=== PATIENT | female | born 1980 | race African-American/Black ===

== ENCOUNTER 2024-11-17 16:09 | Emergency (ER) | payer OTHER ==
[~2024-11-17] VITALS: Ht 152.4 cm; Wt 68.0 kg
[2024-11-17 17:00] VITALS: O2SAT 98
[2024-11-17 17:47] LABS: *BILIRUBIN,URIN NEGATIVE (NEGATIVE); *BLOOD, URINE 1+ (NEGATIVE); *CLARITY,URINE CLEAR (CLEAR); *COLOR,URINE YELLOW (YELLOW); *KETONES,URINE NEGATIVE (NEGATIVE); *PROTEIN,URINE NEGATIVE (NEGATIVE); *UROBILINOGEN,URINE 0.2 E.U./dl (NORMAL); LEUKOCYTE ESTERASE ,URINE NEGATIVE (NEGATIVE); NITRITE, URINE NEGATIVE (NEGATIVE); PH,URINE 5.5 (5.0-8.0); UGLUCOSE NEGATIVE (NEGATIVE)
[2024-11-17 17:50] LABS: RBC,URINE 0-3 /HPF (0-3); WBC,URINE 0-3 /HPF (0-3)
[2024-11-17 18:15] LABS: *URINE HCG, QUAL NEGATIVE (NEGATIVE)
[2024-11-17] MEDS ORDERED: CEFI400C PO (21:06)
[2024-11-17] MEDS ORDERED: DOXY100C5 PO (21:06)
== END 2024-11-17 18:17 | disposition left against medical advice (07) ==
LOC: EDBD 16:09 → EDSEX 16:09 → ER 18:14
DX: R10.9 Unspecified abdominal pain (principal); Z53.21 Procedure and treatment not carried out due to patient leaving prior to being seen by health care provider
CPT/HCPCS: 84703; 87086; A4606; A4663

== ENCOUNTER 2024-11-17 18:41 | Emergency (ER) | payer OTHER ==
[~2024-11-17] VITALS: Ht 149.9 cm; Wt 65.3 kg
[2024-11-17 19:12] LABS: BASOPHILS # (AUTO) 0.1 K/UL (0.0-0.2); BASOPHILS % (AUTO) 0.9 % (0.0-2.0); EOSINOPHILS # (AUTO) 0.1 K/uL (0.0-0.7); EOSINOPHILS % (AUTO) 1.7 % (0.0-7.0); HEMATOCRIT 39.5 % (31.2-41.9); HEMOGLOBIN 12.7 g/dL (10.9-14.3); LYMPHOCYTES # (AUTO) 2.1 K/uL (0.8-4.8); LYMPHOCYTES % (AUTO) 34.3 % (20.5-51.5); MEAN CORPUSCULAR HEMOGLOBIN 26.6 uug (24.7-32.8); MEAN CORPUSCULAR HGB CONC 32 g/dL (32.3-35.6); MEAN CORPUSCULAR VOLUME 82.4 fL (75.5-95.3); MONOCYTES # (AUTO) 0.7 K/uL (0.1-1.30); MONOCYTES % (AUTO) 11.9 % (0.0-11.0); NEUTROPHILS # (AUTO) 3.1 K/uL (1.8-8.9); NEUTROPHILS % (AUTO) 51.2 % (38.5-71.5); PLATELET COUNT (AUTO) 264 K/uL (179-408); RED BLOOD CELL COUNT(AUTO) 4.79 MIL/uL (3.63-4.92); RED CELL DISTRIBUTION WIDTH 15.2 % (12.3-17.7)
[2024-11-17 19:14] LABS: DIFFERENTIAL COMMENT 1
[2024-11-17 19:18] LABS: CALCIUM 9.3 mg/dL (8.5-10.1); CREATININE 0.7 mg/dL (0.6-1.3)
[2024-11-17 19:24] LABS: ALBUMIN 4.1 g/dL (3.4-5.0); BILIRUBIN,DIRECT 0.1 mg/dL (0.0-0.2); BILIRUBIN,TOTAL 0.4 mg/dL (0.2-1.0); TOTAL PROTEIN, SERUM 7.7 g/dL (6.4-8.2)
[2024-11-17] MEDS ORDERED: DOXYCYCLINE HYCLATE 100 MG TABLET ONE (19:28)
[2024-11-17] MEDS: DOXYCYCLINE HYCLATE 100 MG TABLET PO ONE (19:30)
[2024-11-17] MEDS ORDERED: DOXY100C5 PO (21:06)
[2024-11-17] MEDS ORDERED: CEFI400C PO (21:06)
[2024-11-17 21:16] VITALS: BP 133/69; O2SAT 97
== END 2024-11-17 21:16 | disposition home or self-care (01) ==
LOC: ER 19:45
DX: N89.8 Other specified noninflammatory disorders of vagina (principal); R14.0 Abdominal distension (gaseous); Z87.19 Personal history of other diseases of the digestive system; Z90.710 Acquired absence of both cervix and uterus
CPT/HCPCS: 36415; 76856; 83690; 85025; 87210; A4606; A4663